=== PATIENT | female | born 1970 | race Caucasian/White ===

== ENCOUNTER 2017-12-30 17:09 | Emergency (ER) | payer MEDICAID ==
[~2017-12-30] VITALS: Ht 161.3 cm; Wt 44.0 kg
[~2017-12-30 17:09] MED LIST: BENA20TA2 PO; ESTR2TAB; GABA-532 PO; IBUP-1986 PO; OMEP20CA10 PO
[2017-12-30 17:46] LABS: BASOPHILS # (AUTO) 0.1 X10'3 (0-0.2); BASOPHILS % (AUTO) 1.2 % (0-1); EOSINOPHILS % (AUTO) 0.1 % (0-6); HEMATOCRIT 43.4 % (35.0-45.0); LYMPHOCYTES # (AUTO) 2.6 X10'3 (1.1-4.8); LYMPHOCYTES % (AUTO) 21.7 % (21-51); MEAN CORPUSCULAR HEMOGLOBIN 31.4 PG (27.0-31.0); MEAN CORPUSCULAR HGB CONC 34.5 % (33.0-36.5); MEAN CORPUSCULAR VOLUME 91.1 FL (78-98); MEAN PLATELET VOLUME 9.2 FL (7.4-10.4); MONOCYTES # (AUTO) 0.4 X10'3 (0-0.9); NEUTROPHILS # (AUTO) 8.9 X10'3 (1.8-7.7); PLATELET COUNT 383 X10'3 (140-440); RED BLOOD COUNT 4.77 X10'6 (4.20-5.60); RED CELL DISTRIBUTION WIDTH 14.7 % (11.5-14.5)
[2017-12-30 17:55] LABS: PROTHROMBIN TIME 10.7 SECONDS (9.0-12.0)
[2017-12-30 18:01] LABS: ALANINE AMINOTRANSFERASE 28 U/L (12-78); ALBUMIN 4.1 G/DL (3.4-5.0); ALBUMIN/GLOBULIN RATIO 1.1 (1.1-1.5); ALKALINE PHOSPHATASE 79 IU/L (46-116); ANION GAP 18 (8-16); ASPARTATE AMINO TRANSFERASE 18 U/L (10-37); BILIRUBIN,TOTAL 1.5 MG/DL (0.1-1.0); BLOOD UREA NITROGEN 9 MG/DL (7-18); BUN/CREATININE RATIO 9.5 (6.6-38.0); CALCIUM 9.6 MG/DL (8.5-10.1); CHLORIDE 103 MMOL/L (99-107); CREATININE 0.95 MG/DL (0.40-0.90); GLUCOSE 169 MG/DL (70-104); POTASSIUM 3.4 MMOL/L (3.5-5.1); SODIUM 142 MMOL/L (135-145); TOTAL CARBON DIOXIDE 21.4 MMOL/L (24-32); TOTAL PROTEIN 7.9 G/DL (6.4-8.2); eGFR 63 ML/MIN
[2017-12-30] MEDS ORDERED: ondansetron/PF 4mg/2ml inj IV ONE (18:10)
[2017-12-30] MEDS ORDERED: morphine 4 MG/ML inj SYRINge IV ONE (18:10)
[2017-12-30] MEDS ORDERED: normal saline 1000ML IV soln IVB ONE (18:10)
[2017-12-30 18:29] LABS: URINE HCG NEGATIVE (NEG)
[2017-12-30 18:34] LABS: LIPASE 62 U/L (73-393)
[2017-12-30] MEDS ORDERED: LORazepam 2 mg/ml vial IV ONE (19:05)
[2017-12-30] MEDS ORDERED: ONDA4TAB9 SL (19:20)
[2017-12-30 19:28] LABS: CLARITY,URINE CLEAR (Clear); COLOR,URINE YELLOW (Yellow); GLUCOSE, URINE 100 mg/dl (Neg); KETONES,URINE >=80 mg/dl (Neg); LEUKOCYTE ESTERASE ,URINE NEGATIVE (Neg); NITRITES, URINE NEGATIVE (Neg); OCCULT BLOOD,URINE NEGATIVE (Neg); PH,URINE 6.5 (4.8-8.0); PROTEIN,URINE NEGATIVE (Neg); UROBILINOGEN,URINE 0.2 E.U/dL (0.2-1.0)
[2017-12-30 19:37] LABS: UA COLLECTION TYPE CLN CATCH MIDSTREAM
[2017-12-30 19:54] VITALS: BP 179/87
== END 2017-12-30 20:01 | disposition home or self-care (01) ==
LOC: ER 17:10
DX: A08.4 Viral intestinal infection, unspecified (principal); E86.0 Dehydration; F12.10 Cannabis abuse, uncomplicated; F17.200 Nicotine dependence, unspecified, uncomplicated; I10 Essential (primary) hypertension; J44.9 Chronic obstructive pulmonary disease, unspecified; G89.29 Other chronic pain; Z90.49 Acquired absence of other specified parts of digestive tract; Z90.710 Acquired absence of both cervix and uterus; Z88.1 Allergy status to other antibiotic agents; Z88.2 Allergy status to sulfonamides; Z79.899 Other long term (current) drug therapy
CPT/HCPCS: 36415; 74176; 80053; 81003; 81025; 83690; 85025; 85610; 93005; 96361; 96374; 96375; 99285; J2060; J2270; J2405; J7030

== ENCOUNTER 2018-09-18 12:08 | Day surgery (SDC) | payer MEDICAID ==
[2018-09-10 13:32] LABS: BASOPHILS % (AUTO) 0.5 % (0-1); EOSINOPHILS # (AUTO) 0.2 X10'3 (0-0.9); EOSINOPHILS % (AUTO) 2.7 % (0-6); LYMPHOCYTES # (AUTO) 3.1 X10'3 (1.1-4.8); LYMPHOCYTES % (AUTO) 34.9 % (21-51); MEAN CORPUSCULAR HEMOGLOBIN 31.1 PG (27.0-31.0); MEAN CORPUSCULAR HGB CONC 33.2 % (33.0-36.5); MEAN CORPUSCULAR VOLUME 93.7 FL (78-98); MEAN PLATELET VOLUME 8.2 FL (7.4-10.4); MONOCYTES # (AUTO) 0.6 X10'3 (0-0.9); MONOCYTES % (AUTO) 6.3 % (2-12); NEUTROPHILS # (AUTO) 4.9 X10'3 (1.8-7.7); NEUTROPHILS % (AUTO) 55.6 % (42-75); PRE OP HEMATOCRIT 39.9 % (35.0-45.0); PRE OP HEMOGLOBIN 13.2 g/dL (12.0-16.0); PRE OP PLATELET COUNT 299 X10'3 (140-440); RED BLOOD COUNT 4.26 X10'6 (4.20-5.60); RED CELL DISTRIBUTION WIDTH 13.6 % (11.5-14.5)
[2018-09-10 13:43] LABS: ALBUMIN 3.9 G/DL (3.4-5.0); ALBUMIN/GLOBULIN RATIO 1.2 (1.1-1.5); ALKALINE PHOSPHATASE 61 IU/L (46-116); BLOOD UREA NITROGEN 10 MG/DL (7-18); BUN/CREATININE RATIO 15.2 (6.6-38.0); CHLORIDE 103 MMOL/L (99-107); CREATININE 0.66 MG/DL (0.40-0.90); PRE OP ALT 19 U/L (30-65); PRE OP ANION GAP 11 (8-16); PRE OP AST 14 U/L (10-37); PRE OP BILIRUB, TOTAL 0.6 MG/DL (0.0-1.0); PRE OP GLUCOSE 80 MG/DL (70-104); PRE OP SODIUM 142 MMOL/L (135-145); TOTAL CARBON DIOXIDE 28.3 MMOL/L (24-32); TOTAL PROTEIN 7.1 G/DL (6.4-8.2); eGFR > 90 ML/MIN
[2018-09-10 13:47] LABS: PRE OP POTASSIUM 3.3 MMOL/L (3.4-5.1)
[2018-09-10 14:16] LABS: PRE OP PROTIME 10.2 SECONDS (9.0-12.0)
[2018-09-18] VITALS (8 sets, daily range): BP systolic 113–159; BP diastolic 79–104
[~2018-09-18] VITALS: Ht 161.3 cm; Wt 49.4 kg
[~2018-09-18 12:08] MED LIST changes: +ALBU18HF2 INH; -BENA20TA2 PO; -ESTR2TAB; -IBUP-1986 PO; +LIDOcaine 1% (10mg/ml) 2ml vial ONE; +LURA80TA3 PO; -OMEP20CA10 PO; +PRAZ1CAP5 PO; +VANCOMYCIN INJ 1000 MG in NORMAL SALINE 250ml IV.SOLN IV ONE; +albuterol 2.5 MG/3 ML nebule NEB ONE; +cefazolin/dext.iso 2gm/50ml 50 ML IV ONE; +famotidine 20mg tablet PO ONE; +ringers solution, lacted 1,000 ML IV SCH
[2018-09-18] MEDS ORDERED: LIDOcaine 0.5% (5mg/ml) 50ml vial ONE (13:35)
[2018-09-18] MEDS ORDERED: MIDAZolam 5mg/5ml vial ONE (13:37)
[2018-09-18] MEDS ORDERED: fentaNYL/PF 50MCG/1 ML 2ML syringe ONE (13:37)
[2018-09-18] MEDS ORDERED: ketorolac trometh. 30mg/ml inj. ONE (13:38)
[2018-09-18] MEDS ORDERED: methylPREDNISolone sod succ 125mg/2ml vial ONE (13:52)
[2018-09-18] MEDS ORDERED: LIDOcaine 1% 30ml preserv. free vial ONE (14:04)
[2018-09-18] MEDS ORDERED: BUPIVAcaine/PF 2.5mg/ml (0.25%) 10ml vial ONE (14:04)
[2018-09-18] MEDS ORDERED: propofol inj 20 ML IV ONE (14:06)
[2018-09-18] MEDS ORDERED: ringers solution, lacted 1,000 ML IV SCH (14:13)
[2018-09-18] MEDS ORDERED: ondansetron/PF 4mg/2ml inj IV PRN (14:15)
[2018-09-18] MEDS ORDERED: hydrALAZINE 20mg/ml inj. IV PRN (14:15)
[2018-09-18] MEDS ORDERED: fentaNYL/PF 50MCG/1 ML 2ML syringe IV PRN ×2 (14:15)
[2018-09-18] MEDS ORDERED: morphine 4 MG/ML inj SYRINge IV PRN ×2 (14:15)
[2018-09-18] MEDS ORDERED: labetalol 20mg/4ml (5mg/ml) syringe IV PRN (14:15)
--- NOTE | 2018-09-18 14:35 | NUR ---
Received from OR via BED , accompanied by Anesthesiologist DR IBANEZ and report given by Anesthesiolgist. PATIENT WAKING UP, NO S/S OF PAIN, V/S WNL, NEUROVASCULAR CHECKS INTACT. PIV 20G TO RUE , SCD ON, DRESSING TO LEFT WRIST CDI.
--- NOTE | 2018-09-18 15:25 | NUR ---
PATIENT A&ox4, denies PAIN, V/S WNL, NEUROVASCULAR CHECKS INTACT. PIV 20G TO RUE d/c , SCD Off, DRESSING TO LEFT WRIST CDI. i have reviewed d/c instructions with patient and she has verbalized understanding. patient d/c home with all belongings and her family gave transport home.
== END 2018-09-18 15:25 | disposition home or self-care (01) ==
LOC: PAS 12:08
PROVIDERS: ATTEND Orthopaedic Surgery
DX: G56.02 Carpal tunnel syndrome, left upper limb (principal); G56.22 Lesion of ulnar nerve, left upper limb; M47.22 Other spondylosis with radiculopathy, cervical region; J44.9 Chronic obstructive pulmonary disease, unspecified; I10 Essential (primary) hypertension; F41.8 Other specified anxiety disorders; F32.89 Other specified depressive episodes; F43.10 Post-traumatic stress disorder, unspecified; Z87.891 Personal history of nicotine dependence; Z91.018 Allergy to other foods; Z87.01 Personal history of pneumonia (recurrent); Z87.09 Personal history of other diseases of the respiratory system; Z72.89 Other problems related to lifestyle; Z87.2 Personal history of diseases of the skin and subcutaneous tissue; Z87.448 Personal history of other diseases of urinary system; Z90.49 Acquired absence of other specified parts of digestive tract; Z88.1 Allergy status to other antibiotic agents; Z86.2 Personal history of diseases of the blood and blood-forming organs and certain disorders involving the immune mechanism; Z88.2 Allergy status to sulfonamides; Z90.710 Acquired absence of both cervix and uterus; Z90.721 Acquired absence of ovaries, unilateral; Z79.891 Long term (current) use of opiate analgesic; Z79.899 Other long term (current) drug therapy; Z98.890 Other specified postprocedural states; Z80.3 Family history of malignant neoplasm of breast
CPT/HCPCS: 36415; 64719; 64721; 80053; 85025; 85610; 85730; 93005; A6222; A6449; J0690; J1885; J2001; J2250; J2704; J2930; J3010; J3370; J3490; J7120

== ENCOUNTER 2018-10-22 12:25 | Emergency (ER) | payer MEDICAID ==
[~2018-10-22] VITALS: Ht 160 cm; Wt 48.0 kg
[~2018-10-22 12:25] MED LIST changes: -LIDOcaine 1% (10mg/ml) 2ml vial ONE; -VANCOMYCIN INJ 1000 MG in NORMAL SALINE 250ml IV.SOLN IV ONE; -albuterol 2.5 MG/3 ML nebule NEB ONE; -cefazolin/dext.iso 2gm/50ml 50 ML IV ONE; -famotidine 20mg tablet PO ONE; -ringers solution, lacted 1,000 ML IV SCH
[2018-10-22 13:02] LABS: BASOPHILS % (AUTO) 0.4 % (0-1); EOSINOPHILS # (AUTO) 0.2 X10'3 (0-0.9); EOSINOPHILS % (AUTO) 1.7 % (0-6); HEMATOCRIT 37.4 % (35.0-45.0); HEMOGLOBIN 12.8 g/dl (12.0-16.0); LYMPHOCYTES # (AUTO) 2.8 X10'3 (1.1-4.8); LYMPHOCYTES % (AUTO) 25.9 % (21-51); MEAN CORPUSCULAR HEMOGLOBIN 32.5 PG (27.0-31.0); MEAN CORPUSCULAR HGB CONC 34.3 g/dL (33.0-36.5); MEAN CORPUSCULAR VOLUME 94.8 FL (78-98); MEAN PLATELET VOLUME 8.1 FL (7.4-10.4); MONOCYTES # (AUTO) 0.6 X10'3 (0-0.9); MONOCYTES % (AUTO) 5.4 % (2-12); NEUTROPHILS # (AUTO) 7.2 X10'3 (1.8-7.7); NEUTROPHILS % (AUTO) 66.6 % (42-75); PLATELET COUNT 310 X10'3 (140-440); RED BLOOD COUNT 3.95 X10'6 (4.20-5.60); RED CELL DISTRIBUTION WIDTH 15.1 % (11.5-14.5); WHITE BLOOD COUNT 10.8 X10'3 (4.5-11.0)
[2018-10-22 13:19] LABS: URINE HCG NEGATIVE (NEG)
[2018-10-22 13:22] LABS: ALANINE AMINOTRANSFERASE 22 U/L (12-78); ALBUMIN 3.8 G/DL (3.4-5.0); ALBUMIN/GLOBULIN RATIO 1.1 (1.1-1.5); ALKALINE PHOSPHATASE 58 IU/L (46-116); ANION GAP 9 (8-16); ASPARTATE AMINO TRANSFERASE 16 U/L (10-37); BILIRUBIN,TOTAL 0.6 MG/DL (0.1-1.0); BLOOD UREA NITROGEN 17 MG/DL (7-18); BUN/CREATININE RATIO 19.3 (6.6-38.0); CALCIUM 8.5 MG/DL (8.5-10.1); CHLORIDE 104 MMOL/L (99-107); CREATININE 0.88 MG/DL (0.40-0.90); GLUCOSE 105 MG/DL (70-104); LIPASE 78 U/L (73-393); POTASSIUM 3.8 MMOL/L (3.5-5.1); SODIUM 143 MMOL/L (135-145); TOTAL CARBON DIOXIDE 30.3 MMOL/L (24-32); TOTAL PROTEIN 7.3 G/DL (6.4-8.2); eGFR 68 ML/MIN
[2018-10-22 13:23] LABS: PROTHROMBIN TIME 10.4 SECONDS (9.0-12.0)
[2018-10-22 13:23] LABS: CLARITY,URINE CLEAR (Clear); COLOR,URINE YELLOW (Yellow); GLUCOSE, URINE NEGATIVE (Neg); KETONES,URINE NEGATIVE (Neg); LEUKOCYTE ESTERASE ,URINE NEGATIVE (Neg); NITRITES, URINE NEGATIVE (Neg); OCCULT BLOOD,URINE NEGATIVE (Neg); PH,URINE 5.5 (4.8-8.0); PROTEIN,URINE NEGATIVE (Neg); UROBILINOGEN,URINE 0.2 E.U/dL (0.2-1.0)
[2018-10-22 13:30] LABS: UA COLLECTION TYPE CLN CATCH MIDSTREAM
[2018-10-22] MEDS ORDERED: normal saline 1000ML IV soln IVB ONE (13:30)
[2018-10-22] MEDS ORDERED: pantoprazole 40 MG vial IV ONE (13:30)
[2018-10-22] MEDS ORDERED: morphine 4 MG/ML inj SYRINge IV ONE (13:30)
[2018-10-22] MEDS ORDERED: ondansetron/PF 4mg/2ml inj IV ONE (13:30)
--- NOTE | 2018-10-22 13:48 | NUR ---
assisted Dr Sylvester with rectal examine, negative hemocult
[2018-10-22] MEDS ORDERED: ONDA8TAB6 PO (14:07)
[2018-10-22] MEDS ORDERED: PANT-47 PO (14:07)
--- NOTE | 2018-10-22 14:09 | NUR ---
pt is resting quietly on gurney, receiving 2nd liter NS, pt said epigastric pain is down to 4/10 "that is normal for me"
[2018-10-22 14:45] VITALS: BP 129/94
[2018-10-22 16:11] LABS: OCCULT BLOOD STOOL NEGATIVE (Neg)
== END 2018-10-22 14:47 | disposition home or self-care (01) ==
LOC: ER 12:26
DX: K92.0 Hematemesis (principal); R10.13 Epigastric pain; R10.84 Generalized abdominal pain; J44.9 Chronic obstructive pulmonary disease, unspecified; I10 Essential (primary) hypertension; G89.29 Other chronic pain; Z90.49 Acquired absence of other specified parts of digestive tract; Z90.710 Acquired absence of both cervix and uterus; Z98.890 Other specified postprocedural states; F12.90 Cannabis use, unspecified, uncomplicated; Z90.721 Acquired absence of ovaries, unilateral; Z87.19 Personal history of other diseases of the digestive system; Z88.2 Allergy status to sulfonamides; Z88.1 Allergy status to other antibiotic agents; Z91.018 Allergy to other foods; Z79.899 Other long term (current) drug therapy
CPT/HCPCS: 36415; 80053; 81003; 81025; 82272; 83690; 85025; 85610; 96361; 96374; 96375; 99283; C9113; J2270; J2405; J7030

== ENCOUNTER 2019-04-06 09:38 | Emergency (ER) | payer MEDICAID ==
[~2019-04-06] VITALS: Ht 160 cm; Wt 54.3 kg
[~2019-04-06 09:38] MED LIST changes: +ONDA8TAB6 PO; +PANT-47 PO
[2019-04-06 09:50] VITALS: BP 126/99
[2019-04-06] MEDS ORDERED: HYDR-4353 PO (10:38)
[2019-04-06] MEDS ORDERED: CLIN300C70 PO (10:38)
== END 2019-04-06 10:58 | disposition home or self-care (01) ==
LOC: ER 09:39
DX: K04.7 Periapical abscess without sinus (principal); I10 Essential (primary) hypertension; J44.9 Chronic obstructive pulmonary disease, unspecified; G89.29 Other chronic pain; F32.9 Major depressive disorder, single episode, unspecified; F10.99 Alcohol use, unspecified with unspecified alcohol-induced disorder; F12.90 Cannabis use, unspecified, uncomplicated; Z90.49 Acquired absence of other specified parts of digestive tract; Z90.710 Acquired absence of both cervix and uterus; Z98.890 Other specified postprocedural states; Z90.721 Acquired absence of ovaries, unilateral; Z88.2 Allergy status to sulfonamides; Z88.1 Allergy status to other antibiotic agents; Z79.899 Other long term (current) drug therapy; Y90.9 Presence of alcohol in blood, level not specified
CPT/HCPCS: 99283

== ENCOUNTER 2019-08-06 13:06 | Day surgery (SDC) | payer MEDICAID ==
[2019-07-29 14:46] LABS: BASOPHILS # (AUTO) 0.1 X10'3 (0-0.2); BASOPHILS % (AUTO) 0.7 % (0-1); EOSINOPHILS # (AUTO) 0.2 X10'3 (0-0.9); EOSINOPHILS % (AUTO) 1.8 % (0-6); LYMPHOCYTES % (AUTO) 33.2 % (21-51); MEAN CORPUSCULAR HEMOGLOBIN 32.5 PG (27.0-31.0); MEAN CORPUSCULAR VOLUME 95.6 FL (78-98); MEAN PLATELET VOLUME 8.6 FL (7.4-10.4); MONOCYTES # (AUTO) 0.6 X10'3 (0-0.9); NEUTROPHILS # (AUTO) 5.2 X10'3 (1.8-7.7); NEUTROPHILS % (AUTO) 57.3 % (42-75); PRE OP HEMATOCRIT 38.6 % (35.0-45.0); PRE OP HEMOGLOBIN 13.1 g/dL (12.0-16.0); PRE OP PLATELET COUNT 303 X10'3 (140-440); RED BLOOD COUNT 4.04 X10'6 (4.20-5.60)
[2019-07-29 15:27] LABS: ALBUMIN 3.7 G/DL (3.4-5.0); ALKALINE PHOSPHATASE 71 IU/L (46-116); BLOOD UREA NITROGEN 13 MG/DL (7-18); BUN/CREATININE RATIO 15.1 (6.6-38.0); CALCIUM 8.6 MG/DL (8.5-10.1); CHLORIDE 107 MMOL/L (99-107); CREATININE 0.86 MG/DL (0.40-0.90); PRE OP ALT 19 U/L (30-65); PRE OP ANION GAP 9 (8-16); PRE OP AST 16 U/L (10-37); PRE OP BILIRUB, TOTAL 0.4 MG/DL (0.0-1.0); PRE OP GLUCOSE 62 MG/DL (70-104); PRE OP SODIUM 144 MMOL/L (135-145); TOTAL CARBON DIOXIDE 27.8 MMOL/L (24-32); TOTAL PROTEIN 7.3 G/DL (6.4-8.2); eGFR 70 ML/MIN
[2019-07-29 15:29] LABS: PRE OP POTASSIUM 3.3 MMOL/L (3.4-5.1)
[2019-08-06] VITALS (7 sets, daily range): BP systolic 149–172; BP diastolic 79–113
[~2019-08-06] VITALS: Ht 161.3 cm; Wt 61.4 kg
[~2019-08-06 13:06] MED LIST changes: -ALBU18HF2 INH; +BUSP15TA3 PO; -LURA80TA3 PO; -ONDA8TAB6 PO; -PANT-47 PO; +QUET25TA PO; +VANCOMYCIN INJ 1000 MG in NORMAL SALINE 250ml IV.SOLN IV ONE; +albuterol 2.5 MG/3 ML nebule NEB ONE; +cefazolin/dext.iso 2gm/50ml 50 ML IV ONE; +famotidine 20mg tablet PO ONE; +ringers solution, lacted 1,000 ML IV SCH
[2019-08-06] MEDS ORDERED: LIDOcaine 0.5% (5mg/ml) 50ml vial ONE (13:55)
[2019-08-06] MEDS ORDERED: ringers solution, lacted 1,000 ML IV SCH (14:02)
[2019-08-06] MEDS ORDERED: hydrALAZINE 20mg/ml inj. IV PRN (14:05)
[2019-08-06] MEDS ORDERED: labetalol 20mg/4ml (5mg/ml) syringe IV PRN (14:05)
[2019-08-06] MEDS ORDERED: morphine 4 MG/ML inj SYRINge IV PRN (14:05)
[2019-08-06] MEDS ORDERED: ondansetron/PF 4mg/2ml inj IV PRN (14:05)
[2019-08-06] MEDS ORDERED: fentaNYL/PF 50MCG/1 ML 2ML syringe IV PRN ×2 (14:05)
[2019-08-06] MEDS ORDERED: BUPIVAcaine/PF 2.5 mg/ml (0.25%) 30ml vial ONE (14:16)
[2019-08-06] MEDS ORDERED: methylPREDNISolone sod succ 125mg/2ml vial ONE (14:16)
[2019-08-06] MEDS ORDERED: fentaNYL/PF 50MCG/1 ML 2ML syringe ONE (15:11)
[2019-08-06] MEDS ORDERED: MIDAZolam 5mg/5ml vial ONE ×2 (15:11→15:21)
[2019-08-06] MEDS ORDERED: propofol 10mg/ml 20ml vial IV ONE (15:18)
[2019-08-06] MEDS ORDERED: BUPIVAcaine/PF 2.5mg/ml (0.25%) 10ml vial IJ ONE (15:20)
[2019-08-06] MEDS ORDERED: methylPREDNISolone sod succ 125mg/2ml vial IM ONE (15:20)
--- NOTE | 2019-08-06 15:52 | NUR ---
Received from OR via shravan, accompanied by Anesthesiologist Earl and report given by Anesthesiolgist. Pt alert and oriented on RA sats 100%, able to wiggle fingers and has good cap refill. IV 20G to left forearm running IVF at 100cc/hr. states okay to give morphine and pt will need labetalol so to give that if BP does not come down after morphine. Right wrist has splint and wrap present.
[2019-08-06] MEDS: morphine 4 MG/ML inj SYRINge IV PRN ×2 (16:03→16:17)
--- NOTE | 2019-08-06 16:52 | NUR ---
Pt discharged to vehicle by wheelchair without incident. Pt and spouse verbalized understanding of DC information. Fingers remain with good cap refill, able to move well. IV DC'd. Pt know to follow up in 2-3 weeks. Pt states pain down to 4/10 at wrist but chronic overall body pain continues. States wrist pain tolerable.
--- NOTE | 2019-08-06 16:52 | NUR ---
Pt has already received pain meds script from Dr galindo
== END 2019-08-06 16:52 | disposition home or self-care (01) ==
LOC: PAS 13:06
PROVIDERS: ATTEND Orthopaedic Surgery
DX: G56.01 Carpal tunnel syndrome, right upper limb (principal); G58.8 Other specified mononeuropathies; J44.9 Chronic obstructive pulmonary disease, unspecified; I10 Essential (primary) hypertension; F31.9 Bipolar disorder, unspecified; M19.90 Unspecified osteoarthritis, unspecified site; G89.29 Other chronic pain; F41.9 Anxiety disorder, unspecified; Z88.2 Allergy status to sulfonamides; Z88.1 Allergy status to other antibiotic agents; Z98.890 Other specified postprocedural states; Z90.710 Acquired absence of both cervix and uterus; Z90.721 Acquired absence of ovaries, unilateral; F17.210 Nicotine dependence, cigarettes, uncomplicated
CPT/HCPCS: 36415; 64719; 64721; 80053; 82948; 85025; 93005; A6222; J2001; J2250; J2270; J2704; J2930; J3010; J3370; J3490; A4215; A4618; A6449; A7000; J7120

== ENCOUNTER 2019-09-02 14:45 | Emergency (ER) | payer MEDICAID ==
[~2019-09-02] VITALS: Ht 160 cm; Wt 63.6 kg
[~2019-09-02 14:45] MED LIST changes: -VANCOMYCIN INJ 1000 MG in NORMAL SALINE 250ml IV.SOLN IV ONE; -albuterol 2.5 MG/3 ML nebule NEB ONE; -cefazolin/dext.iso 2gm/50ml 50 ML IV ONE; -famotidine 20mg tablet PO ONE; -ringers solution, lacted 1,000 ML IV SCH
[2019-09-02 15:53] LABS: BASOPHILS # (AUTO) 0.1 X10'3 (0-0.2); BASOPHILS % (AUTO) 1.2 % (0-1); EOSINOPHILS % (AUTO) 0.4 % (0-6); HEMATOCRIT 39.1 % (35.0-45.0); MEAN CORPUSCULAR HEMOGLOBIN 33.6 PG (27.0-31.0); MEAN CORPUSCULAR HGB CONC 35.7 g/dL (33.0-36.5); MEAN CORPUSCULAR VOLUME 94.1 FL (78-98); MEAN PLATELET VOLUME 8.5 FL (7.4-10.4); MONOCYTES # (AUTO) 0.7 X10'3 (0-0.9); MONOCYTES % (AUTO) 7.5 % (2-12); NEUTROPHILS # (AUTO) 6.3 X10'3 (1.8-7.7); NEUTROPHILS % (AUTO) 68.9 % (42-75); PLATELET COUNT 316 X10'3 (140-440); RED BLOOD COUNT 4.15 X10'6 (4.20-5.60); RED CELL DISTRIBUTION WIDTH 14.4 % (11.5-14.5); WHITE BLOOD COUNT 9.2 X10'3 (4.5-11.0)
[2019-09-02] MEDS ORDERED: normal saline 1000ML IV soln IVB ONE (16:05)
[2019-09-02] MEDS ORDERED: ondansetron/PF 4mg/2ml inj IV ONE ×2 (16:05→18:30)
[2019-09-02] MEDS ORDERED: ketorolac tromethamine 15mg/ml inj. IV ONE (16:05)
[2019-09-02 16:06] LABS: ALANINE AMINOTRANSFERASE 21 U/L (12-78); ALBUMIN/GLOBULIN RATIO 1.2 (1.1-1.5); ALKALINE PHOSPHATASE 80 IU/L (46-116); ANION GAP 15 (8-16); ASPARTATE AMINO TRANSFERASE 19 U/L (10-37); BILIRUBIN,TOTAL 0.9 MG/DL (0.1-1.0); BLOOD UREA NITROGEN 16 MG/DL (7-18); CALCIUM 8.8 MG/DL (8.5-10.1); CHLORIDE 105 MMOL/L (99-107); CREATININE 0.84 MG/DL (0.40-0.90); GLUCOSE 118 MG/DL (70-104); SODIUM 142 MMOL/L (135-145); TOTAL CARBON DIOXIDE 22.3 MMOL/L (24-32); TOTAL PROTEIN 7.4 G/DL (6.4-8.2); eGFR 72 ML/MIN
[2019-09-02 17:11] LABS: LIPASE 118 U/L (73-393)
[2019-09-02] MEDS ORDERED: potassium Cl 20 mEq SR tablet PO ONE (18:10)
[2019-09-02] MEDS ORDERED: HYDROcodone/acetaminophen 10/325mg tab PO ONE (18:30)
[2019-09-02] MEDS ORDERED: morphine 4 MG/ML inj SYRINge IV PRN (18:30)
[2019-09-02 18:51] VITALS: BP 170/63
[2019-09-02] MEDS ORDERED: ONDA4TAB6 PO (18:52)
[2019-09-02] MEDS ORDERED: HYDR-4353 PO (18:52)
== END 2019-09-02 18:52 | disposition home or self-care (01) ==
LOC: ER 14:45
DX: R11.2 Nausea with vomiting, unspecified (principal); R07.89 Other chest pain; R19.7 Diarrhea, unspecified; R10.9 Unspecified abdominal pain; I10 Essential (primary) hypertension; J44.9 Chronic obstructive pulmonary disease, unspecified; G89.29 Other chronic pain; F32.9 Major depressive disorder, single episode, unspecified; F10.99 Alcohol use, unspecified with unspecified alcohol-induced disorder; F12.90 Cannabis use, unspecified, uncomplicated; Z90.49 Acquired absence of other specified parts of digestive tract; Z90.710 Acquired absence of both cervix and uterus; Z98.890 Other specified postprocedural states; Z90.721 Acquired absence of ovaries, unilateral; Z88.2 Allergy status to sulfonamides; Z88.1 Allergy status to other antibiotic agents; Y90.9 Presence of alcohol in blood, level not specified
CPT/HCPCS: 36415; 71045; 80053; 83690; 84484; 85025; 93005; 96361; 96374; 96375; 96376; 99284; J1885; J2270; J2405; J7030

== ENCOUNTER 2020-05-10 17:16 | Emergency (ER) | payer MEDICAID ==
[~2020-05-10] VITALS: Ht 160 cm; Wt 51.9 kg
[~2020-05-10 17:16] MED LIST changes: +ONDA4TAB6 PO
[2020-05-10] MEDS ORDERED: epiNEPHrine 1 mg/ml inj SQ STA (17:21)
[2020-05-10] MEDS ORDERED: dexamethasone sod phosphate 10mg/ml inj IV STA (17:24)
[2020-05-10] MEDS ORDERED: normal saline 1000ML IV soln IVB ONE (17:25)
[2020-05-10] MEDS ORDERED: tranexamic acid 100mg/ml inj. IV ONE (17:25)
[2020-05-10] MEDS ORDERED: racepinephrine 11.25mg/0.5ml nebule IH ONE (17:25)
[2020-05-10] MEDS ORDERED: famotidine/PF 10 mg/ml inj IV ONE (17:25)
[2020-05-10] MEDS ORDERED: ketorolac trometh. 30mg/ml inj. IV ONE (18:30)
[2020-05-10] MEDS ORDERED: HYDROcodone/acetaminophen 5mg/325mg tablet PO ONE (18:50)
[2020-05-10] MEDS ORDERED: metoclopramide 5 mg/ml inj IV ONE (19:00)
[2020-05-10 19:21] VITALS: BP 164/93
== END 2020-05-10 19:20 | disposition home or self-care (01) ==
LOC: ER 17:17
DX: T78.1XXA Other adverse food reactions, not elsewhere classified, initial encounter (principal); R11.2 Nausea with vomiting, unspecified; I10 Essential (primary) hypertension; J44.9 Chronic obstructive pulmonary disease, unspecified; G89.29 Other chronic pain; F32.9 Major depressive disorder, single episode, unspecified; F12.90 Cannabis use, unspecified, uncomplicated; Z90.89 Acquired absence of other organs; Z90.710 Acquired absence of both cervix and uterus; Z98.890 Other specified postprocedural states; Z72.89 Other problems related to lifestyle; Z88.2 Allergy status to sulfonamides; Z88.1 Allergy status to other antibiotic agents; Z79.899 Other long term (current) drug therapy; X58.XXXA Exposure to other specified factors, initial encounter
CPT/HCPCS: 94640; 96361; 96372; 96374; 96375; 99291; J0171; J1100; J1885; J2765; J3490; J7030; 94760